=== PATIENT | male | born 1965 | race Caucasian/White ===

== ENCOUNTER 2017-07-21 00:25 | Emergency (ER) | payer BC ==
[2017-07-21] MEDS ORDERED: SODIUM CHLORIDE 0.9% 1000ML 1,000 ML IVS ONE (00:29)
[2017-07-21 00:49] VITALS: TEMP 98.1; O2SAT 99
--- NOTE | 2017-07-21 00:53 | RAD ---
EXAM DESCRIPTION: Chest,1 View CLINICAL HISTORY: 52 years Male ams s/p brief cpr COMPARISON: None. FINDINGS: The cardiomediastinal silhouette appears unremarkable. No consolidating infiltrates or pleural effusions. No pneumothorax. Post surgical changes the lower cervical spine. Small amount of atelectasis the lung bases. IMPRESSION: Amount of basilar atelectasis. No evidence of edema or consolidation Electronically signed by: Amy Munguia 07/21/2017 12:51 AM CDT
--- NOTE | 2017-07-21 00:55 | ED.PDOC ---
History of Present Illness - General Chief Complaint: Neuro Symptoms/Deficits Stated Complaint: passed out, possible seizure activity Time Seen by Provider: 07/21/17 00:28 Source: patient, RN notes reviewed, Vital Signs reviewed, family Additional Information: Pt brought in by EMS for reported possible seizure like activity. Pt has a history of Chronic Hepatitis C and Alcohol Use Disorder. He was at a gathering where there was alcohol being consumed and he admits to drinking beer. Family called EMS because patient "passed out" and reportedly had possible "seizure". Pt has not had seizures before in the past as far as he knows. Pt did not bite his tongue. Pt did not display post-ictal behavior. Pt in no distress. - History of Present Illness Timing/Duration: 1/2 hour - prior to arrival. Uneventful EMS transit and 1 hour observation in ED. Severity: moderate Improving Factors: rest Worsening Factors: nothing Associated Symptoms: denies symptoms Allergies/Adverse Reactions: Allergies NO KNOWN ALLERGY Allergy (Verified 07/21/17 00:39) Home Medications: Ambulatory Orders Citalopram Hydrobromide 0 mg PO DAILY 07/21/17 Gabapentin 0 mg PO BEDTIME 07/21/17 Lisinopril 10 mg PO DAILY 07/21/17 Metoprolol Tartrate 0 mg PO BEDTIME 07/21/17 Review of Systems - Review of Systems Constitutional: States: no symptoms reported EENTM: States: no symptoms reported Respiratory: States: no symptoms reported Cardiology: States: no symptoms reported Gastrointestinal/Abdominal: States: no symptoms reported Genitourinary: States: no symptoms reported Musculoskeletal: States: no symptoms reported Skin: States: no symptoms reported Neurological: States: no symptoms reported Endocrine: States: no symptoms reported Hematologic/Lymphatic: States: no symptoms reported Past Medical History (General) - Patient Medical History Hx Seizures: No Hx Stroke: No Hx Dementia: No Hx Asthma: No Hx of COPD: No Hx Cardiac Disorders: No Hx Congestive Heart Failure: No Hx Pacemaker: No Hx Hypertension: Yes Hx Thyroid Disease: No Hx Diabetes: No Hx Gastroesophageal Reflux: No Hx Renal Disease: No Hx Cancer: No Hx of HIV: No Hx Hepatitis C: Yes Hx MRSA: No Hx Other PMH: Yes - Alcohol Use Disorder Surgical History: appendectomy - Vaccination History Hx Tetanus, Diphtheria Vaccination: Yes Hx Influenza Vaccination: Yes Immunizations Up to Date: Yes - Social History Hx Tobacco Use: Yes Hx Chewing Tobacco Use: Yes Tins Per Day Chewed: 1 Hx Alcohol Use: Yes - chronic Hx Substance Use: No Hx Substance Use Treatment: No Hx Depression: Yes Feels Threatened In Home Enviroment: No Feels Threatened In a Relationship: No Hx Physical Abuse: No Hx Emotional Abuse: No Hx Suspected Abuse: No Family Medical History - Family History Mother Family History: Unknown Physical Exam - Physical Exam General Appearance: Comfortable, No apparent distress Eye Exam: bilateral normal Ears, Nose, Throat: hearing grossly normal, normal ENT inspection, normal pharynx Neck: non-tender, full range of motion, supple Respiratory: no respiratory distress, no accessory muscle use Cardiovascular/Chest: normal peripheral pulses, tachycardia - mild (99-104) Gastrointestinal/Abdominal: non tender, soft Extremity: normal range of motion, non-tender, normal inspection, no pedal edema 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 He did not exhibit any post-ictal signs. He was cooperative and he was able to ambulate without assistance. Labs and studies revealed no obvious acute abnormalities. Pt is stable for discharge home. He is encouraged to consider EtOH detoxification and work towards abstinence/recovery in order to protect his liver. - Results/Orders Results/Orders: 07/21/17 00:30 EKG STAT Laboratory Results - last 24 hr 07/21/17 07/21/17 00:35 00:35 WBC 5.1 RBC 4.23 L Hgb 14.4 Hct 41.3 L MCV 97.5 H MCH 34.0 H MCHC 34.8 RDW 12.6 Plt Count 149 MPV 8.7 Absolute Neuts (auto) 2.30 Absolute Lymphs (auto) 2.00 Absolute Monos (auto) 0.60 Absolute Eos (auto) 0.20 Absolute Basos (auto) 0.00 Neutrophils % 45.8 Lymphocytes % 38.3 Monocytes % 12.3 H Eosinophils % 3.1 Basophils % 0.5 Sodium 137 Potassium 4.0 Chloride 102 Carbon Dioxide 26 Anion Gap 13.0 BUN 11 Creatinine 0.74 BUN/Creatinine Ratio 14.9 Random Glucose 124 H Serum Osmolality 274.6 L Calcium 8.6 Total Bilirubin 0.5 AST 137 H ALT 291 H Alkaline Phosphatase 92 Creatine Kinase 75 CK-MB (CK-2) 1.6 CK-MB (CK-2) % Not Reportable Troponin I < 0.02 Serum Total Protein 6.1 L Albumin 3.7 Globulin 2.4 Albumin/Globulin Ratio 1.5 - EKG/XRAY/CT EKG: Sinus - 99 bpm, no ST T wave changes XRAY: chest - No acute abnormalities noted. Mild bibasilar atelectasis. CT: Head Non-Contrast: No acute intracranial abnormalities noted CT Ordered: Yes Departure - Departure Clinical Impression: Altered awareness, transient, Alcohol use disorder Hepatitis C Qualifiers: Viral hepatitis chronicity: chronic Hepatic coma status: without hepatic coma Qualified Code(s): B18.2 - Chronic viral hepatitis C Time of Disposition: Disposition: Discharge to Home or Self Care Condition: Fair Departure Forms: ED Discharge - Pt. Copy, Patient Portal Self Enrollment Instructions: DI for Alcohol Abuse and Alcoholism Home Medications: Ambulatory Orders Citalopram Hydrobromide 0 mg PO DAILY 07/21/17 Gabapentin 0 mg PO BEDTIME 07/21/17 Lisinopril 10 mg PO DAILY 07/21/17 Metoprolol Tartrate 0 mg PO BEDTIME 07/21/17 Additional Instructions: Follow-up with Liver Specialist. I recommend seeking assistance to help detox from chronic alcohol use and eventually abstain from Alcohol in order to prevent further liver damage. Stay well hydrated with water at least 2 liters per day.
--- NOTE | 2017-07-21 01:09 | CT ---
Procedure: CT HEAD WITHOUT IV CONTRAST Exam Date: 07/21/2017 Ordering Provider: Ishan Good Clinical Indication: EtOH use disorder, s/p syncope with possible sz Comparison: None Technique: Using a helical scanner, sequential axial imaging of the brain was obtained without the administration of intravenous contrast. The exam was obtained from the skull base to vertex. This exam was performed according to our departmental dose optimization program which includes use of automated exposure control, adjustment of the mA and/or kV according to patient size and/or use of iterative reconstruction technique. Findings: Ventricular size and configuration are normal. There is no midline shift or hydrocephalus. There is no acute intracranial hemorrhage or mass effect. There is no acute infarct. Cortical larsen matter, subcortical white matter, and periventricular white matter have normal appearance. The calvarium is intact. There is no fracture. There is no lytic or sclerotic lesion. Mucosal thickening of the ethmoid air cells. The visualized paranasal sinuses and mastoid air cells are otherwise unremarkable. IMPRESSION: No acute intracranial abnormality demonstrated. Electronically signed by: Romario Jo MD 07/21/2017 1:08 AM CDT
[2017-07-21 01:46] VITALS: BP 108/69
== END 2017-07-21 01:40 | disposition home or self-care (01) ==
LOC: ER 00:25
DX: R40.4 Transient alteration of awareness (principal); B18.2 Chronic viral hepatitis C; F10.10 Alcohol abuse, uncomplicated; Z87.891 Personal history of nicotine dependence; I10 Essential (primary) hypertension; Z79.899 Other long term (current) drug therapy
CPT/HCPCS: 36415; 70450; 71010; 80053; 82550; 82553; 84484; 85025; 93005; J7030